=== PATIENT | female | born 1970 | race Caucasian/White ===

== ENCOUNTER 2016-09-01 20:22 | Emergency (ER) | payer OTHER ==
[2016-09-01] MEDS ORDERED: MORPHINE SULFATE 10 MG/ML INJ IV ONE ×2 (20:32→21:29)
[2016-09-01] MEDS ORDERED: NORMAL SALINE 1000 ML 1,000 ML IV PRN (20:32)
[2016-09-01] MEDS ORDERED: ONDANSETRON HCL INJ/PF 4 MG/2 ML SDV IV ONE ×2 (20:32→21:29)
--- NOTE | 2016-09-01 20:34 | ER Document Report ---
ED Medical Screen (RME) - General Stated Complaint: ABDOMINAL PAIN Time Seen by Provider: 09/01/16 20:31 Mode of Arrival: Ambulatory Information source: Patient - HPI Patient complains to provider of: Left lower quadrant abdominal pain Onset: This afternoon Onset/Duration: Sudden Quality of pain: Sharp, Stabbing Severity: Moderate Pain Level: 4 Associated Symptoms: Chills, Diarrhea, Nausea Similar symptoms previously: Yes Notes: 09/01/16 20:33 Patient is a 45-year-old female who is visiting the area from [facility], who presents to the emergency room with sudden onset sharp stabbing left lower quadrant abdominal pain that started shortly before arrival in the emergency room, she reports a loose bowel movement earlier today that was without blood, denies any urinary symptoms, she does report subjective fever and chills earlier today but she has been taking Tylenol or Motrin throughout the day so she did not develop a fever, she states she was seen at a local hospital in [facility] in May with similar symptoms and diagnosed with diverticulitis, her first follow-up appointment with a agriculture extension specialist is scheduled for next week - Related Data Allergies/Adverse Reactions: cefazolin [From [employer]] Allergy (Verified 09/01/16 20:31) Hives codeine Allergy (Verified 09/01/16 20:30) Anoop
[2016-09-01 20:59] LABS: ABSOLUTE BASOPHILS # (AUTO) 0.1 10^3/uL (0.0-0.2); ABSOLUTE EOSINOPHILS # (AUTO) 0.2 10^3/uL (0.0-0.6); ABSOLUTE LYMPHOCYTES (AUTO) 2.9 10^3/uL (0.5-4.7); ABSOLUTE MONOCYTES (AUTO) 0.4 10^3/uL (0.1-1.4); ABSOLUTE NEUT (AUTO) 4.3 10^3/uL (1.7-8.2); BASOPHILS % (AUTO) 0.7 % (0-2); EOSINOPHILS % (AUTO) 2.4 % (0-6); HEMATOCRIT 36.2 % (36.0-47.0); HEMOGLOBIN 12.2 g/dL (12.0-15.5); HGB HCT DIFFERENCE 0.4; LYMPHOCYTES % (AUTO) 36.8 % (13-45); MEAN CORPUSCULAR HGB CONC 33.7 g/dL (32.0-36.0); MEAN CORPUSCULAR VOLUME 86 fl (80-97); MONOCYTES % (AUTO) 4.5 % (3-13); RED BLOOD COUNT 4.21 10^6/uL (3.72-5.28); RED CELL DISTRIBUTION WIDTH 12.4 % (11.5-14.0); SEGMENTED NEUTROPHILS % (AUTO) 55.6 % (42-78); WHITE BLOOD COUNT 7.8 10^3/uL (4.0-10.5)
[2016-09-01 21:13] LABS: APPEARANCE,URINE CLEAR; BILIRUBIN,URINE NEGATIVE (NEGATIVE); GLUCOSE, URINE NEGATIVE (NEGATIVE); KETONES,URINE NEGATIVE (NEGATIVE); LEUKOCYTE ESTERASE,URINE NEGATIVE (NEGATIVE); NITRITE,URINE NEGATIVE (NEGATIVE); PROTEIN,URINE NEGATIVE (NEGATIVE); URINE SPECIFIC GRAVITY 1.003; UROBILINOGEN,URINE NEGATIVE mg/dL (<2.0)
[2016-09-01 21:17] LABS: ALANINE AMINOTRANSFERASE 27 U/L (9-52); ALBUMIN 4.7 g/dL (3.5-5.0); ALKALINE PHOSPHATASE 99 U/L (38-126); ANION GAP 14 (5-19); ASPARTATE AMINO TRANSFERASE 16 U/L (14-36); BILIRUBIN,DIRECT 0.3 mg/dL (0.0-0.4); BILIRUBIN,TOTAL 0.5 mg/dL (0.2-1.3); BLOOD UREA NITROGEN 13 mg/dL (7-20); CALCIUM 10.2 mg/dL (8.4-10.2); CARBON DIOXIDE 26 mmol/L (22-30); CHLORIDE 104 mmol/L (98-107); CREATININE RESULT 0.65 mg/dL (0.52-1.25); GLUCOSE 95 mg/dL (75-110); POTASSIUM 4.4 mmol/L (3.6-5.0); SODIUM 143.6 mmol/L (137-145); TOTAL PROTEIN 7.7 g/dL (6.3-8.2)
[2016-09-01] MEDS ORDERED: CIPROFLOXACIN HCL 500 MG TABLET PO ONE (21:29)
[2016-09-01] MEDS ORDERED: METRONIDAZOLE 500 MG TABLET PO ONE (21:29)
--- NOTE | 2016-09-01 22:38 | ER Document Report ---
ED GI/ - General Chief Complaint: Abdominal Pain Stated Complaint: ABDOMINAL PAIN Time Seen by Provider: 09/01/16 20:31 Mode of Arrival: Ambulatory Notes: Patient is a 45 year old female that comes to the ED for chief complaint of abdominal pain that has developed over the past day, pain is in the Left Lower Abdomen, denies flank pain, denies fever, denies bloody bowel movement. Patient reports that she had similar symptoms recently, about 2 months ago, she was treated for diverticulitis after CAT scan confirmed at that time. She states symptoms resolved. She had a gastroenterology follow-up coming up. She is from out of town. Patient states that about a week ago she had another CAT scan which was normal at that time. Patient states her symptoms were actually worse last time. TRAVEL OUTSIDE OF THE [place] IN LAST 30 DAYS: No - Related Data Allergies/Adverse Reactions: cefazolin [From [employer]] Allergy (Verified 09/01/16 20:31) Hives codeine Allergy (Verified 09/01/16 20:30) Hives Past Medical History - General Information source: Patient - Social History Smoking Status: Never Smoker Frequency of alcohol use: None Drug Abuse: None Lives with: Family Family History: Reviewed & Not Pertinent Patient has suicidal ideation: No Patient has homicidal ideation: No - Medical History Medical History: Negative Renal/ Medical History: Denies: Hx Peritoneal Dialysis Surgical Hx: Negative - Immunizations Immunizations up to date: Yes Review of Systems - Review of Systems Constitutional: No symptoms reported EENT: No symptoms reported Cardiovascular: No symptoms reported Respiratory: No symptoms reported Gastrointestinal: See HPI Genitourinary: No symptoms reported Female Genitourinary: No symptoms reported Musculoskeletal: No symptoms reported Skin: No symptoms reported Hematologic/Lymphatic: No symptoms reported Neurological/Psychological: No symptoms reported Physical Exam - Vital signs Vitals: Temp Pulse Resp BP Pulse Ox 98.6 F 111 H 17 159/100 H 100 09/01/16 20:34 09/01/16 20:34 09/01/16 20:34 09/01/16 20:34 09/01/16 20:34 Interpretation: Normal - General General appearance: Appears well, Alert In distress: None - Patient does not appear to be in any distress on my exam - HEENT Head: Normocephalic, Atraumatic Eyes: Normal Pupils: PERRL - Respiratory Respiratory status: No respiratory distress Chest status: Nontender Breath sounds: Normal Chest palpation: Normal - Cardiovascular Rhythm: Regular, Tachycardia - Patient is borderline tachycardic Heart sounds: Normal auscultation, S1 appreciated, S2 appreciated Murmur: No - Abdominal Inspection: Normal Distension: No distension Bowel sounds: Normal Tenderness: Tender - There is specific tenderness to the left mid to lower abdomen on exam, no guarding, no rebound tenderness, soft and benign abdomen otherwise Organomegaly: No organomegaly - Back Back: Normal, Nontender - Extremities General upper extremity: Normal inspection, Nontender, Normal color, Normal ROM , Normal temperature General lower extremity: Normal inspection, Nontender, Normal color, Normal ROM , Normal temperature, Normal weight bearing. No: Tru's sign - Neurological Neuro grossly intact: Yes Cognition: Normal Orientation: AAOx4 [place] Coma Scale Eye Opening: Spontaneous [place] Coma Scale Verbal: Oriented [place] Coma Scale Motor: Obeys Commands [place] Coma Scale Total: 15 Speech: Normal Motor strength normal: LUE, RUE, LLE, RLE Sensory: Normal - Psychological Associated symptoms: Normal affect, Normal mood - Skin Skin Temperature: Warm Skin Moisture: Dry Skin Color: Normal Course - Re-evaluation Re-evalutation: Patient initially tachycardic, improved with IV fluids and pain medication. Laboratory workup is very unremarkable with no leukocytosis, unremarkable chemistry and urine. Patient's symptoms are manageable with medication. After discussion patient actually declines CAT scan, she had 2 recent CAT scans, symptoms are not as bad this time. Treating for suspected diverticulitis, patient had a close follow-up with gastroenterology already scheduled, I discussed return precautions in detail with patient, patient states understanding and agreement. - Vital Signs Vital signs: Temp Pulse Resp BP Pulse Ox 98.5 F 100 12 148/97 H 100 09/01/16 23:06 09/01/16 23:06 09/01/16 23:06 09/01/16 23:06 09/01/16 23:06 - Laboratory Result Diagrams: 09/01/16 20:45 09/01/16 20:45 Laboratory results interpreted by me: 09/01/16 20:40 Urine Blood SMALL H Discharge - Discharge Clinical Impression: Left lower quadrant pain Condition: Stable Disposition: HOME, SELF-CARE Additional Instructions: Your lab workup does not show any concerning abnormalities. Take the antibiotics to completion. Take the pain medication and nausea medication if needed. 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 Return to emergency department immediately if you worsen - fever, bloody bowel movements, increased pain, etc. Prescriptions: Ciprofloxacin HCl [Cipro 500 mg Tablet] 500 mg PO BID #20 tablet Metronidazole [Flagyl 500 mg Tablet] 500 mg PO TID #30 tablet Ondansetron [Zofran Odt 4 mg Tablet] 1 - 2 tab PO Q4H PRN #15 tab.rapdis PRN Reason: For Nausea/Vomiting Oxycodone HCl/Acetaminophen [Percocet 5-325 mg Tablet] 1 - 2 tab PO Q4H PRN #15 tablet PRN Reason:
[2016-09-01] MEDS ORDERED: ONDANSETRON ODT 4 MG TAB (6 TAB/DSPK) PO PRN (22:39)
[2016-09-01] MEDS ORDERED: HYDROCODONE/ACETAMINOPHEN 5-325 MG 6 TAB/DSPK PO PRN (22:39)
[2016-09-01 23:07] VITALS: BP 148/97
== END 2016-09-01 23:06 | disposition home or self-care (01) ==
LOC: ER 20:22
DX: R10.32 Left lower quadrant pain (principal); R00.0 Tachycardia, unspecified; Z87.19 Personal history of other diseases of the digestive system; Z88.5 Allergy status to narcotic agent; Z88.1 Allergy status to other antibiotic agents
CPT/HCPCS: 96376; 99284; 96361; 96374; 96375; 36415; 83690; 85025; 80053; 81001; J2270; J2405; J7030